=== PATIENT | male | born 1985 | race Caucasian/White ===

== ENCOUNTER 2021-02-19 10:24 | Outpatient (CLI) | payer OTHER ==
[~2021-02-19 10:24] MED LIST: PEPCID40 MG PO; ZOFRAN4 MG PO
== END 2021-02-19 10:39 | disposition home or self-care (01) ==
LOC: RX STUDY 10:24
PROVIDERS: ATTEND Internal Medicine Gastroenterology
DX: Z12.11 Encounter for screening for malignant neoplasm of colon (principal); Z86.010 Personal history of colon polyps

== ENCOUNTER → 2025-02-28 | Day surgery (SDC) | payer OTHER ==
[~2025-02-28] MED LIST changes: +DIPHENHYDRAMINE HCL 50 MG/ML VIAL 1ML IV ONE; +GLUCAGON 1 MG VIAL IV ONE; +MIDAZOLAM HCL 50 MG/10 ML VIAL IV ONE; +fentaNYL CITRATE 50 MCG/ML AMPUL IV ONE
== END | disposition home or self-care (01) ==
LOC: ADM 02-20 12:45 → AMB-ENDOS 11:00
PROVIDERS: ATTEND Internal Medicine Gastroenterology
DX: D13.2 Benign neoplasm of duodenum (principal); K31.7 Polyp of stomach and duodenum; K29.80 Duodenitis without bleeding; K44.9 Diaphragmatic hernia without obstruction or gangrene